=== PATIENT | female | born 1955 | race African-American/Black ===

== ENCOUNTER 2018-07-24 17:41 | Emergency (ER) | payer OTHER ==
[~2018-07-24] VITALS: Ht 165.1 cm; Wt 38.6 kg
[2018-07-24] MEDS ORDERED: GLUMETZA500 MG (17:57)
[2018-07-24] MEDS ORDERED: LISINOPRIL5 MG (17:58)
== END 2018-07-24 23:35 | disposition home or self-care (01) ==
LOC: ER 17:41
DX: H53.8 Other visual disturbances (principal); N39.0 Urinary tract infection, site not specified

== ENCOUNTER 2018-07-28 12:18 | Emergency (ER) | payer OTHER ==
[~2018-07-28] VITALS: Ht 160 cm; Wt 40.8 kg
[~2018-07-28 12:18] MED LIST: GLUMETZA500 MG; LISINOPRIL5 MG
== END 2018-07-28 21:50 | disposition home or self-care (01) ==
LOC: ER 12:18
DX: E86.0 Dehydration (principal); R63.0 Anorexia; Z85.028 Personal history of other malignant neoplasm of stomach